=== PATIENT | female | born 1990 | race Two or more races ===

== ENCOUNTER 2022-08-28 03:03 | Emergency (ER) | payer BC ==
[~2022-08-28] VITALS: Ht 165.1 cm; Wt 77.1 kg
[2022-08-28] MEDS ORDERED: ESOM20CA PO (03:22)
[2022-08-28] MEDS ORDERED: ASPIRIN 81 MG TAB.CHEW ONE (03:25)
--- NOTE | 2022-08-28 03:28 | NUR ---
AT BEDSIDE FOR EVAL.
[2022-08-28] MEDS ORDERED: ASPIRIN 81 MG TAB.CHEW PO ONE (03:30)
[2022-08-28] MEDS ORDERED: SIMETHICONE 80 MG TAB.CHEW PO ONE (03:30)
[2022-08-28] MEDS ORDERED: LORAZEPAM 0.5 MG TABLET PO ONE (03:30)
[2022-08-28] MEDS ORDERED: LORAZEPAM 1 MG TABLET ONE (03:34)
[2022-08-28] MEDS ORDERED: SIMETHICONE 80 MG TAB.CHEW ONE (03:34)
[2022-08-28 03:35] LABS: HEMATOCRIT 34.4 % (31.2-41.9); MEAN CORPUSCULAR HEMOGLOBIN 28.5 uug (24.7-32.8); MEAN CORPUSCULAR VOLUME 85.8 fL (75.5-95.3); PLATELET COUNT (AUTO) 260 K/uL (179-408)
--- NOTE | 2022-08-28 03:43 | NUR ---
CHEST X RAY DONE AT BEDSIDE.
[2022-08-28 03:50] LABS: CARBON DIOXIDE 27 mmol/L (21-32); CHLORIDE 102 mmol/L (98-107); CREATININE 0.7 mg/dL (0.6-1.3); GLUCOSE 131 mg/dL (74-106); POTASSIUM 3.2 mmol/L (3.5-5.1); UREA NITROGEN, BLOOD 11 mg/dL (7-18)
--- NOTE | 2022-08-28 03:50 | NUR ---
PT UP OOB AMB TO BR WITH STEADY GAIT. PT VOIDED WITH NO DIFFICULTY.
[2022-08-28] MEDS ORDERED: POTASSIUM CHLORIDE 20 MEQ TAB.PRT.SR PO ONE (04:00)
[2022-08-28] MEDS ORDERED: NITROGLYCERIN OINT 1 GM PACKET TP ONE ×2 (04:00→04:11)
[2022-08-28 04:04] LABS: ALANINE AMINOTRANSFERASE 18 U/L (14-59); ALKALINE PHOSPHATASE 68 U/L (50-136); ASPARTATE AMINOTRANSFERASE 14 U/L (15-37); BILIRUBIN,DIRECT < 0.1 mg/dL (0.0-0.2); BILIRUBIN,TOTAL < 0.1 mg/dL (0.2-1.0); TOTAL PROTEIN, SERUM 7.4 g/dL (6.4-8.2)
[2022-08-28] MEDS ORDERED: POTASSIUM CHLORIDE 20 MEQ TAB.PRT.SR ONE (04:11)
[2022-08-28 06:08] VITALS: BP 126/77
--- NOTE | 2022-08-28 06:10 | NUR ---
PT A,A AND O X 4 WITH NO CP NO SOB AND PALPITATIONS RESOLVED. Patient discharged to home in stable condition. Written and verbal after care instructions given. Patient verbalizes understanding of instructions. Stressed follow up or return to ER for worsening s/s.
== END 2022-08-28 06:39 | disposition home or self-care (01) ==
LOC: ER 03:05
DX: R00.2 Palpitations (principal); R94.31 Abnormal electrocardiogram [ECG] [EKG]; K21.9 Gastro-esophageal reflux disease without esophagitis; R07.89 Other chest pain; Z91.040 Latex allergy status; Z79.899 Other long term (current) drug therapy
CPT/HCPCS: 36415; 71045; 84484; 85025; 93005; A4663

== ENCOUNTER 2022-09-06 20:35 | Emergency (ER) | payer BC ==
[~2022-09-06] VITALS: Ht 167.6 cm; Wt 73.0 kg
[~2022-09-06 20:35] MED LIST: ESOM20CA PO
[2022-09-06] MEDS ORDERED: LIDOCAINE VISCUS 2% 15 ML UDC MM ONE (21:00)
[2022-09-06] MEDS ORDERED: ASPIRIN 81 MG TAB.CHEW PO ONE (21:00)
[2022-09-06] MEDS ORDERED: DICYCLOMINE HCL LIQ 10 MG/5 ML UDC PO ONE (21:00)
[2022-09-06] MEDS ORDERED: SIMETHICONE 80 MG TAB.CHEW PO ONE (21:00)
[2022-09-06] MEDS ORDERED: MAG HYDROX/AL HYDROX/SIMETH 30 ML LIQUID UDC PO ONE (21:00)
--- NOTE | 2022-09-06 21:00 | NUR ---
Dr. Arredondo evaluating patient at bedside. MSE in progress.
[2022-09-06] MEDS ORDERED: DICYCLOMINE HCL LIQ 10 MG/5 ML UDC ONE (21:11)
[2022-09-06] MEDS ORDERED: ASPIRIN 81 MG TAB.CHEW ONE (21:11)
[2022-09-06] MEDS ORDERED: LIDOCAINE VISCUS 2% 15 ML UDC ONE (21:11)
[2022-09-06] MEDS ORDERED: MAG HYDROX/AL HYDROX/SIMETH 30 ML LIQUID UDC ONE (21:12)
[2022-09-06] MEDS ORDERED: SIMETHICONE 80 MG TAB.CHEW ONE (21:12)
--- NOTE | 2022-09-06 21:14 | NUR ---
Xray at bedside
[2022-09-06 21:24] LABS: HEMATOCRIT 37.2 % (31.2-41.9); MEAN CORPUSCULAR HEMOGLOBIN 28.3 uug (24.7-32.8); MEAN CORPUSCULAR VOLUME 84.8 fL (75.5-95.3); PLATELET COUNT (AUTO) 270 K/uL (179-408)
[2022-09-06 21:30] LABS: CARBON DIOXIDE 27 mmol/L (21-32); CHLORIDE 104 mmol/L (98-107); CREATININE 0.7 mg/dL (0.6-1.3); GLUCOSE 104 mg/dL (74-106); POTASSIUM 3.5 mmol/L (3.5-5.1); UREA NITROGEN, BLOOD 9 mg/dL (7-18)
[2022-09-06 21:43] LABS: ALANINE AMINOTRANSFERASE 15 U/L (14-59); ALKALINE PHOSPHATASE 71 U/L (50-136); ASPARTATE AMINOTRANSFERASE 11 U/L (15-37); BILIRUBIN,DIRECT 0.1 mg/dL (0.0-0.2); BILIRUBIN,TOTAL 0.2 mg/dL (0.2-1.0)
[2022-09-06] MEDS ORDERED: LORAZEPAM 2 MG/1 ML VIAL IV ONE (22:30)
[2022-09-06] MEDS ORDERED: LORAZEPAM 0.5 MG TABLET PO ONE (22:30)
[2022-09-06] MEDS ORDERED: LORAZEPAM 0.5 MG TABLET ONE ×2 (22:33→22:35)
--- NOTE | 2022-09-07 00:43 | NUR ---
Patient discharged to home in stable condition. Written and verbal after care instructions given. Patient verbalizes understanding of instructions.Instructed patient to not drive. Stressed follow up or return to ER for worsening s/s.
[2022-09-07 01:19] VITALS: BP 125/81
== END 2022-09-07 01:19 | disposition home or self-care (01) ==
LOC: ER 20:37
DX: R07.89 Other chest pain (principal); R00.2 Palpitations; R14.2 Eructation; R10.2 Pelvic and perineal pain; K21.9 Gastro-esophageal reflux disease without esophagitis; Z91.040 Latex allergy status; Z79.899 Other long term (current) drug therapy
CPT/HCPCS: 36415; 71045; 84484; 85025; 93005; A4663